=== PATIENT | male | born 1975 | race Caucasian/White ===

== ENCOUNTER 2024-08-04 15:19 | Emergency (ER) | payer OTHER, SELFPAY ==
[2024-08-04] VITALS (8 sets, daily range): BP systolic 105–129; BP diastolic 74–93; PULSE 87–94; BMI 24.2
[2024-08-04 15:35] LABS: Hematocrit 42.5 % (39.0-52.0); Hemoglobin 14.6 g/dL (13.0-18.0); Mean Corp Hgb Conc. 34.4 g/dL (33.0-37.0); Mean Corpuscular Volume 90.2 fL (80.0-94.0); Mean Platelet Volume 10.5 fL (7.4-10.4); Platelet Count 172 10^3/uL (130-400); Red Blood Cell Count 4.71 10^6/uL (4.70-6.10); Red Cell Dist. Width 12.7 % (11.5-14.5); White Blood Cell Count 3.9 10^3/uL (4.8-10.8)
[2024-08-04 16:03] LABS: ALT (SGPT) 54 U/L (0-50); AST (SGOT) 34 U/L (17-59); Albumin 5.1 g/dl (3.5-5.0); Alkaline Phosphatase 61 U/L (38-126); Blood Urea Nitrogen 18 mg/dl (9-20); Calcium 9.5 mg/dl (8.4-10.2); Carbon Dioxide 27 mmol/L (22-30); Chloride 100 mmol/L (98-107); Estimated Creatinine Clearance > 125 ml/min; Glucose 86 mg/dl (70-99); Potassium 3.9 mmol/L (3.5-5.1); Sodium 138 mmol/L (135-145); Total Bilirubin 1.1 mg/dl (0.2-1.3); Total Protein 7.5 g/dl (6.3-8.2); eGFR > 60.00
--- NOTE | 2024-08-04 17:10 | ED.GENMED ---
History of Present Illness
General
Chief Complaint: Dizziness
Source: patient
Exam Limitations: none
Time Seen by Provider: 08/04/24 16:47
Nursing documentation reviewed up to this point in time: agreed with
History of Present Illness
History of Present Illness:
48-year-old male limited past medical history presents with dizziness like he may pass out, having headaches recently, does not typically get a lot of headaches, has had similar episodes of near syncope in the past seen in the ER seen by his PCP
told it may be due to low blood pressure, no history of hypertension no history of diabetes no history of CAD denies any chest pain or shortness of breath, no abdominal pain, no pain now at all he states, no headache, we do have headache yesterday,
Past History
Past History
ED Past Medical History: None
ED Past Surgical History: None
Social History
Tobacco: Non-smoker
Alcohol: None
Drug: None
Personal:
Living: with family
Employment: Employed
Family History
Family History: Other
Review of Systems
Review of Systems
All Other Systems: Not applicable
Constitutional: Reports fatigue; Denies fever
Respiratory: Reports no symptoms
Cardiac: Reports no symptoms
ABD/GI: Reports no symptoms
: Reports no symptoms
Musculoskeletal: Reports no symptoms
Neurological: Reports dizzy and headache (Yesterday none now); Denies numbness
Endocrine: Reports no symptoms
Hematologic/Lymphatic: Reports no symptoms
Psychiatric: Reports no symptoms
Phy Exam
Physical Exam
Physical Exam:
Physical Exam
General: no apparent distress, not acutely ill
Neck: No tongue bite
Heart: s1/s2 regular rate and rhythm, no murmur. equal radial pulses.
Lungs: no acute respiratory distress. clear bilaterally
Abdomen: Nontender
Neuro: alert and oriented. no focal neurological deficits
Skin: no rash
Psychiatric: well kept. interactive and cooperative
Extremities: No edema no calf pain
Course
Orders/Labs/Results
Orders:
Orders
08/04/24 15:21
Electrocardiogram (*1) Urgent
Reason for Study: Vertigo / Dizzy
08/04/24 15:22
EKG- Treatment ONCE
08/04/24 15:28
CMP [Comprehensive Metabolic Panel] Urgent
Complete Blood Count/No Diff Urgent
08/04/24 16:56
CT Head W/o Iv Contrast Urgent
Comment:
Reason For Exam: worsenign headache
Orthostatic VS- Treatment ONCE
0.9% Sodium Chloride 1000 ml [Nss] 1,000 ml IV BOLUS
Abnormal Lab Results
08/04/24
15:28
WBC 3.9 L 10^3/uL
(4.8-10.8)
MPV 10.5 H fL
(7.4-10.4)
ALT 54 H U/L
(0-50)
Albumin 5.1 H g/dl
(3.5-5.0)
08/04/24 15:28
08/04/24 15:28
Vital Signs
Initial and Last Documented VS:
Initial Vital Signs
Temp Pulse Resp BP Pulse Ox
98.0 F 86 15 129/74 100
08/04/24 15:23 08/04/24 15:23 08/04/24 15:23 08/04/24 15:23 08/04/24 15:23
Last Documented Vital Signs
Temp Pulse Resp BP Pulse Ox
98.0 F 90 19 110/75 100
08/04/24 15:23 08/04/24 18:00 08/04/24 18:00 08/04/24 18:00 08/04/24 18:00
MDM/Problems Addressed
Differential Diagnosis Includes:
Complicated migraine arrhythmia electrolyte abnormality orthostasis hypotension hypoglycemia seizure conceivably brain mass conceivably anxiety panic disorder
MDM/Problems Addressed:
Dizziness, near syncope headache
*Critical Care Note
Total Time (30-74mins, 75-104mins- exclusive of procedures): Not Applicable
Update Note
Update Note:
6:[address] noted labs noted
ED Attending Note
-
Portions of this chart may have been created with voice recognition software.� Occasional wrong word or��sound alike� substitutions may have occurred due to the inherent limitations of voice recognition software.
Discharge Plan
Departure
Patient Disposition: Home (Routine Discharge)
Date of Disposition: 08/04/24
Time of Disposition: 18:30
Patient with high blood pressure during this ER visit?: No
Condition: Good
Discharge Problem:
Dizziness, Headache
Instructions: Dizziness, Palpitations ED
Prescriptions:
No Action
No Meds [No Current Medications]
0
Referrals:
UNKNOWN - PT DOES,NOT KNOW [Family Provider] -
James Lan MD [Active] - Next open appointment
Activity Restrictions/Additional Instructions:
Drink plenty of fluids Tylenol ibuprofen for headache
Follow-up with your primary care provider and cardiology Dr. Lan or his associates to discuss your symptoms and the need for any further cardiac testing
Interventions
Interventions:
*Risk Screen - Suicide Last Done: 08/04/24 15:23
*General Assessment Last Done: 08/04/24 15:23
*Neglect/Abuse Screening Last Done: 08/04/24 15:23
*ED- Fall Risk Assessment Last Done: 08/04/24 15:23
*ED COVID-19 Vaccine History Last Done: 08/04/24 15:23
ED- Neurological Assessment Last Done: 08/04/24 15:32
Discharge Date and Time
Print Language: [id number]
[2024-08-04] MEDS: NSS 1000 IV (17:11)
== END 2024-08-04 18:54 | disposition home or self-care (01) ==
LOC: EMR 15:19
PROVIDERS: EMERGENCY PHYSICIAN Emergency Medicine
DX: R42 Dizziness and giddiness (principal); R51.9 Headache, unspecified
CPT/HCPCS: 96360; 99284; 70450; 80053; 85027; 93005